=== PATIENT | female | born 1975 | race Caucasian/White ===

== ENCOUNTER 2016-10-17 21:31 | Emergency (ER) | payer MEDICAID ==
[2016-10-17 21:41] VITALS: RESP 18; TEMP 98.1
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
[2016-10-17 23:09] VITALS: BP 133/66; PULSE 71; O2SAT 98
== END 2016-10-17 23:09 | disposition home or self-care (01) ==
DX: B86 Scabies (principal)

== ENCOUNTER 2017-04-13 15:36 | Emergency (ER) | payer MEDICAID ==
[2017-04-13 15:45] VITALS: RESP 16; TEMP 98.1
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
[2017-04-13] MEDS ORDERED: IBUPROFEN 600 MG TAB PO ONE (17:13)
[2017-04-13 17:40] VITALS: BP 100/62; PULSE 71; O2SAT 97
== END 2017-04-13 17:39 | disposition home or self-care (01) ==
DX: N64.4 Mastodynia (principal)

== ENCOUNTER 2017-04-23 16:43 | Emergency (ER) | payer MEDICAID ==
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
[2017-04-23] MEDS ORDERED: IOPAMIDOL (ISOVUE 370) 100 ML BTL IV ONE (18:14)
[2017-04-23 19:52] VITALS: BP 115/75; PULSE 65; RESP 16; TEMP 98.4; O2SAT 93
== END 2017-04-23 19:51 | disposition home or self-care (01) ==
DX: N64.4 Mastodynia (principal); N60.42 Mammary duct ectasia of left breast
CPT/HCPCS: 82947-QW; Q9967

== ENCOUNTER 2017-06-17 18:52 | Emergency (ER) | payer MEDICAID ==
--- NOTE | 2017-06-17 20:11 | EDPHY ---
H & P Stated Complaint: L rib pain, swollen lymphoid swollen Time Seen by Provider: 06/17/17 19:51 HPI/ROS: CHIEF COMPLAINT: Multitude of complaints HISTORY OF PRESENT ILLNESS: Patient is a 41-year-old female who comes to the ED with a multitude of complaints. She complains of a swollen throat that causes her to have trouble breathing and a cough when she lies flat. Otherwise it does not bother her at all. She also complains of clogged mammary duct in her left breast, pain to her last mid axillary region ribs with deep inspiration. She complains of bruising over both great toes. She complains of yellow discoloration on the top of her left foot. She complains that she occasionally has some swelling in her right wrist. She complains that she has had a change in her sense of smell. She has not had a fever. No nausea vomiting. No abdominal pain. No chest pain. No headache. REVIEW OF SYSTEMS: Constitutional: denies: chills, fever, recent illness, recent injury EENTM: See HPI Respiratory: See HPI Cardiac: denies: chest pain, irregular heart rate, lightheadedness, palpitations Gastrointestinal/Abdominal: denies: abdominal pain, diarrhea, nausea, vomiting, blood streaked stools Genitourinary: denies: dysuria, frequency, hematuria, pain Musculoskeletal: See HPI Skin: denies: lesions, rash, jaundice, bruising Neurological: denies: headache, numbness, paresthesia, tingling, dizziness, weakness Hematologic/Lymphatic: denies: blood clots, easy bleeding, easy bruising Immunologic/allergic: denies: HIV/AIDS, transplant EXAM: GENERAL: Well-appearing, well-nourished and in no acute distress. HEAD: Atraumatic, normocephalic. EYES: Pupils equal round and reactive to light, extraocular movements intact, sclera anicteric, conjunctiva are normal. ENT: TMs normal, nares patent, oropharynx clear without exudates. Moist mucous membranes. NECK: Normal range of motion, supple without lymphadenopathy or JVD. LUNGS: Breath sounds clear to auscultation bilaterally and equal. No wheezes rales or rhonchi. HEART: Regular rate and rhythm without murmurs, rubs or gallops. ABDOMEN: Soft, nontender, normoactive bowel sounds. No guarding, no rebound. No masses appreciated. BACK: No CVA tenderness, no spinal tenderness, step-offs or deformities EXTREMITIES: Normal range of motion, no pitting or edema. No clubbing or cyanosis. Some very slight bruising to both great toes with 2 splinter hemorrhages. No bruising or hemorrhages on the rest of her nail beds. NEUROLOGICAL: Cranial nerves II through XII grossly intact. Normal speech, normal gait. 5/5 strength, normal movement in all extremities, normal sensation PSYCH: Normal mood, normal affect. SKIN: Warm, dry, normal turgor, no visible rashes or lesions. No discoloration or bruising Source: Patient Exam Limitations: No limitations - Personal History LMP (Females 10-55): Pre Menstrual Current Tetanus Diphtheria and Acellular Pertussis (TDAP): Yes Tetanus Vaccine Date: 1999 - Medical/Surgical History Hx Asthma: No Hx Chronic Respiratory Disease: No Hx Diabetes: No Hx Cardiac Disease: No Hx Renal Disease: No Hx Cirrhosis: No Hx Alcoholism: No Hx HIV/AIDS: No Hx Splenectomy or Spleen Trauma: No Other PMH: PITUITARY GLAND TUMOR - Social History Smoking Status: Never smoked Alcohol Use: Sober Constitutional: Initial Vital Signs Temperature (C) 36.5 C 06/17/17 19:18 Heart Rate 81 06/17/17 19:18 Respiratory Rate 18 06/17/17 19:18 Blood Pressure 99/78 L 06/17/17 19:18 O2 Sat (%) 98 06/17/17 19:18 O2 Delivery Mode Room Air Allergies/Adverse Reactions: morphine Allergy (Severe, Verified 06/17/17 19:18) Penicillins Allergy (Mild, Verified 06/17/17 19:18) Rash Home Medications: Medication Instructions Recorded Hydrocodone/APAP 5/325 [[place] 1 - 2 tab PO Q4 #13 tab 04/13/17 5/325 (RX)] Ibuprofen 600 mg PO Q6 #12 tablet 04/13/17 Medical Decision Making - Diagnostics EKG Interpretation: An EKG obtained and was read and documented in trace view. Please see trace view for full reading and report. Sinus rhythm, no acute ischemic changes ED Course/Re-evaluation: The patient has a normal exam except for some bruising to both great toes. I do not think that she has endocarditis. She does not have a fever. No murmurs on exam. I will obtain lab work, chest x-ray and EKG. I told her that it is unlikely will find a explanation for all of her symptoms. She understands this. Differential Diagnosis: Partial list of the Differential diagnosis considered include but were not limited to; stress, anxiety, bruising, rib injury, pleurisy and although unlikely based on the history and physical exam, I also considered acute coronary disease, endocarditis, dissection, cancer. I discussed these differential diagnoses and the plan with the patient as well as the usual and expected course. The patient understands that the diagnosis is provisional and that in medicine we are not always correct and that further workup is often warranted. Usual and customary warnings were given. All of the patient's questions were answered. The patient was instructed to return to the emergency department should the symptoms at all worsen or return, otherwise to followup with the physician as we discussed. - Data Points Laboratory Results: Laboratory Results 06/17/17 20:20 06/17/17 20:20 Departure - Departure Disposition: Home, Routine, Self-Care Clinical Impression: Contusion of great toe Condition: Good Instructions: Contusion in Adults (ED) Referrals: NONE *PRIMARY CARE P,. [Primary Care Provider] - 2-3 days, call for appt.
[2017-06-17 20:36] LABS: PLATELET COUNT 331 10^3/uL (150-400)
[2017-06-17 20:45] LABS: INR 1.01 (0.83-1.16); PROTIME(PATIENT) 13.5 SEC (12.0-15.0)
--- NOTE | 2017-06-17 21:19 | CPEKG ---
Heart Rate: 69 RR Interval: 870 P-R Interval: 180 QRSD Interval: 106 QT Interval: 416 QTC Interval: 446 P [place]: 71 QRS [place]: 14 T Wave [place]: 46 EKG Severity - BORDERLINE ECG - EKG Impression: SINUS RHYTHM EKG Impression: PROBABLE LEFT ATRIAL ABNORMALITY Electronically Signed By: Blas Guerra 17-Jun-2017 21:28:41
[2017-06-17 22:03] VITALS: RESP 18; TEMP 98.6
[2017-06-17 22:06] VITALS: BP 108/74; PULSE 65; O2SAT 97
== END 2017-06-17 22:17 | disposition home or self-care (01) ==
DX: M79.81 Nontraumatic hematoma of soft tissue (principal)

== ENCOUNTER 2018-02-19 20:00 | Emergency (ER) | payer MEDICAID ==
[2018-02-19 20:08] VITALS: BP 109/90
--- NOTE | 2018-02-19 20:44 | EDPHY ---
H & P Time Seen by Provider: 02/19/18 20:20 HPI/ROS: CHIEF COMPLAINT: Cough and sore throat and body aches HISTORY OF PRESENT ILLNESS: Patient is a 42-year-old female here with her son was the same symptoms cough sore throat and body aches for the last 3-4 days. States she is starting to feel slightly improved. She denies any fever, or productive cough. She denies shortness of breath. She has had no vomiting or diarrhea. ROS As detailed in HPI Smoking Status: Never smoked Physical Exam: General: Alert and oriented. Nontoxic appearing. No acute distress HEENT: Pupils PERRLA. No oral lesions. Uvula midline. No tonsillar exudate. No cervical lymphadenopathy Chest: Lung sounds clear with no wheezing or rhonchi Cardiopulmonary: Regular rate and rhythm. No lower extremity edema Skin: [place] warm and dry. No lesions. Muscle skeletal: Moving all 4 extremities. Equal strength in upper extremities and lower extremities. Ambulatory. Constitutional: Initial Vital Signs Temperature (C) 36.6 C 02/19/18 20:04 Heart Rate 95 02/19/18 20:04 Respiratory Rate 18 02/19/18 20:04 Blood Pressure 109/90 H 02/19/18 20:04 O2 Sat (%) 96 02/19/18 20:04 O2 Delivery Mode Room Air Allergies/Adverse Reactions: morphine Allergy (Severe, Verified 06/17/17 19:18) Home Medications: Medication Instructions Recorded Amoxicillin 02/19/18 Medical Decision Making ED Course/Re-evaluation: 42-year-old female here with flu-like symptoms that have been going on for 3-4 days. She is outside the treatment window for the flu and is afebrile, non tachycardic and not hypoxic. There is no evidence of strep pharyngitis. Low suspicion for pneumonia base and lack of tachycardia and hypoxia. Differential Diagnosis: Pneumonia, strep pharyngitis, viral pharyngitis, influenza Departure - Departure Disposition: Home, Routine, Self-Care Clinical Impression: Viral upper respiratory illness Condition: Good Instructions: Influenza (ED) Referrals: [facility],. [Clinic] - As per Instructions
== END 2018-02-19 21:28 | disposition home or self-care (01) ==
DX: J06.9 Acute upper respiratory infection, unspecified (principal)

== ENCOUNTER 2018-08-14 20:16 | Emergency (ER) | payer MEDICAID | END 2018-08-14 21:17 | disposition home or self-care (01) | DX: E04.0 Nontoxic diffuse goiter (principal) ==